=== PATIENT | female | born 1935 | race Caucasian/White ===

== ENCOUNTER 2023-10-21 09:55 | Outpatient (OUT) | payer MEDICARE, SELFPAY ==
--- NOTE | 2023-10-21 11:32 | CA_ITS ---
Patient Name: NAM RUIZ MR#: [id number] : 1935 Exam Date: 10/21/2023 Ordering Doctor: URBANO MILES ECHOCARDIOGRAM REPORT PROCEDURE: CA ECHO LIMITED INDICATIONS: Chronic systolic heart failure COMPARISON: None. DESCRIPTION: Limited ECHOCARDIOGRAM Real-time transthoracic echocardiography with 2D and M-mode performed. QUALITY: Technical quality was good. LEFT VENTRICLE: Normal chamber size. Moderate concentric left ventricular hypertrophy. Global left ventricular systolic function is severely decreased. Abnormal septal motion, likely due to pacing/bundle branch block. LV EF: Visual estimation of left ventricular ejection fraction is 20-25% DIASTOLIC: ATRIAL SEPTUM: LEFT ATRIUM: Severe dilatation. RIGHT ATRIUM: Severe dilatation. RIGHT VENTRICLE: Moderate dilatation. Mildly decreased right ventricular systolic function. Pacer wire present. TRICUSPID VALVE: Normal mobility and thickness. MITRAL VALVE: Normal mobility and thickness. AORTIC VALVE: Normal trileaflet appearance. Mildly calcified aortic valve. Mildly diminished mobility. AORTIC ROOT: Normal diameter and appearance. PULMONIC VALVE: Normal thickness and mobility. PERICARDIUM: Trivial pericardial effusion. IVC: Severe dilatation. No collapse PLEURA: CONCLUSION: 1. The left ventricle exhibits moderate concentric hypertrophy with severely reduced systolic function. LVEF is estimated at 20 to 25%. 2. Moderately dilated right ventricle with mildly reduced systolic function. 3. Severe biatrial dilatation. 4. The aortic valve is calcified and exhibits reduced leaflet excursion. 5. Severely dilated IVC with no inspiratory collapse, consistent with elevated right atrial pressures. 6. Limited study performed with no Doppler interrogation as requested. Adult Echocardiography Procedure Report Left Ventricle LVEDD (3.7 - 5.6 cm): 5.42 cm LVESD (2.2 - 4.0 cm): 5.09 cm LVIVS thickness (0.6 - 1.2 cm): 1.74 cm LVPW thickness (0.5 - 1.0 cm): 1.50 cm LVOT Diameter 1.90 cm Left Ventricular Ejection Fraction: 20-25 % Left Atrium LA Volume Index (2D A2C): 96.19 ml/m2 Left Atrium Systolic Dimension: 5.42 cm Mitral Valve Right Ventricle RV Internal Diastolic Dimension: 4.55 cm Aorta AO Root Diam: 3.07 cm Aortic Valve Tricuspid Valve Pulmonic Valve Right Atrium Right Atrium Systolic Pressure: 139.71 ml, 139.71 ml Dictated by: David Kennedy M.D. on 10/21/2023 at 16:22 Approved by: David Kennedy M.D. on 10/21/2023 at 16:27
== END 2023-10-21 09:56 | disposition home or self-care (01) ==
LOC: CARD 09:56
PROVIDERS: Visit Provider Nurse Practitioner
DX: I50.22 Chronic systolic (congestive) heart failure (principal)
CPT/HCPCS: 93308; 93356

== ENCOUNTER 2023-12-10 12:08 | Outpatient (OUT) | payer MEDICARE, SELFPAY ==
--- NOTE | 2023-12-10 12:35 | XR_ITS ---
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 TECHNIQUE: PA and lateral views of the chest. FINDINGS: The cardiomediastinal silhouette is enlarged. Left-sided cardiac pacemaker with atrial and ventricular leads. Interstitial opacity. There is no pneumothorax. No pleural effusion is noted. The osseous structures are intact. XR/XR chest 2V IMPRESSION: Cardiomegaly with congestion. Electronically authenticated by: SERENE DUNHAM Date: 12/10/2023 13:13
== END 2023-12-10 12:09 | disposition home or self-care (01) ==
LOC: RAD 12:10
PROVIDERS: Visit Provider Internal Medicine Cardiovascular Disease
DX: I42.0 Dilated cardiomyopathy (principal); I51.7 Cardiomegaly
CPT/HCPCS: 71046

== ENCOUNTER 2024-03-10 09:49 | Outpatient (OUT) | payer MEDICARE, SELFPAY ==
--- NOTE | 2024-03-10 09:55 | CA_ITS ---
Patient Name: NAM RUIZ MR#: [id number] : 1935 Exam Date: 03/10/2024 Ordering Doctor: LUCINA AC ECHOCARDIOGRAM REPORT PROCEDURE: CA ECHO DOPPLER COMPLETE INDICATIONS: Heart failure with reduced EF COMPARISON: None. DESCRIPTION: COMPLETE ECHOCARDIOGRAM Real-time transthoracic echocardiography with 2D, M-mode, spectral and color flow Doppler performed. QUALITY: Technical quality was good. LEFT VENTRICLE: Appears mildly dilated. Mild eccentric left ventricular hypertrophy. Global left ventricular systolic function is severely decreased. There is global hypokinesis. LV EF: Estimated left ventricular ejection fraction is 25-30 %. DIASTOLIC: Not adequately assessed due to heart rhythm. ATRIAL SEPTUM: LEFT ATRIUM: Severe dilatation. RIGHT ATRIUM: Severe dilatation. RIGHT VENTRICLE: Mild dilatation. Normal right ventricular systolic function. Pacer wire present. TRICUSPID VALVE: Normal mobility and thickness. No stenosis with mild to moderate regurgitation. Mild pulmonary hypertension. RVSP 42 mmHg MITRAL VALVE: Normal mobility and thickness. No evidence of mitral valve stenosis. Mild mitral annular calcification. Moderate mitral regurgitation. AORTIC VALVE: Normal trileaflet appearance. Moderately calcified aortic valve. Moderately diminished mobility. Doppler velocity suggests moderate aortic valve stenosis. DVI 0.3, AZEEM 0.9 cm2, Vmax 2.6 m/s, Mean gradient 16 mmHg. Moderate aortic regurgitation. AORTIC ROOT: Normal diameter and appearance. PULMONIC VALVE: Normal thickness and mobility. No stenosis. Trivial regurgitation. PERICARDIUM: Trivial pericardial effusion. IVC: Collapses with inspirations. Mild dilatation measuring 2.4 cm. PLEURA: CONCLUSION: 1. Left ventricle exhibits mild eccentric hypertrophy with severely reduced systolic function. There is global hypokinesis. Estimated LVEF is 25 to 30%. 2. The right ventricle exhibits mild dilatation with normal systolic function. 3. Severe biatrial dilatation. 4. Moderate aortic valve stenosis with moderate regurgitation. 5. Moderate mitral and mild to moderate tricuspid regurgitation. 6. Mildly elevated right-sided pressures. RVSP is 42 mmHg. 7. Trivial pericardial effusion. Adult Echocardiography Procedure Report Left Ventricle LVEDD (3.7 - 5.6 cm): 5.47 cm LVESD (2.2 - 4.0 cm): 4.91 cm LVIVS thickness (0.6 - 1.2 cm): 1.47 cm LVPW thickness (0.5 - 1.0 cm): 1.40 cm e': 0.08 m/s E - e': 12.34 LVOT Max Gradient: 2.22 mm[Hg] LVOT Area (cm2): 0.75 m/s Peak Velocity (LVOT): 0.75 m/s Mean Velocity (LVOT): 0.55 m/s LVOT Diameter 1.99 cm Left Ventricular Ejection Fraction: 25-30 % Left Atrium LA Volume Index (2D A2C): 87.90 ml/m2 Left Atrium Systolic Dimension: 5.20 cm Mitral Valve Mitral Valve E-Wave Peak Velocity: 0.99 m/s Right Ventricle RV Internal Diastolic Dimension: 4.37 cm Aorta AO Root Diam: 2.90 cm Ascending Ao Diam: 2.78 cm Aortic Valve AoV Area (Peak Jaquan): 0.99 cm2, 0.90 cm2, 1.34 cm2, 1.34 cm2 AoV Area (VTI): 0.99 cm2, 0.87 cm2 Deceleration [place]: 2.34 m/s2, 1.61 m/s2 Pressure Half-Time: 480.66 ms, 608.04 ms Peak Velocity(Antegrade Flow): 2.58 m/s, 2.53 m/s, 2.18 m/s, 2.18 m/s, 2.28 m/s, 1.74 m/s Peak Gradient(Antegrade Flow): 26.55 mm[Hg], 25.63 mm[Hg], 19.07 mm[Hg], 19.07 mm[Hg], 20.86 mm[Hg], 12.08 mm[Hg] Mean Velocity(Antegrade Flow): 1.93 m/s, 1.92 m/s, 1.69 m/s, 1.75 m/s, 1.86 m/s Mean Gradient(Antegrade Flow): 16.44 mm[Hg], 16.29 mm[Hg], 12.35 mm[Hg], 13.09 mm[Hg], 14.44 mm[Hg] Velocity Time Integral: 55.76 cm, 54.30 cm, 42.04 cm, 43.01 cm, 51.43 cm Tricuspid Valve Peak Velocity (Regurgitant Flow): 2.65 m/s, 2.83 m/s, 2.91 m/s Pulmonic Valve Mean Gradient: 2.03 mm[Hg], 1.87 mm[Hg] Mean Velocity: 0.67 m/s, 0.63 m/s Peak Velocity: 0.95 m/s, 0.82 m/s Peak Gradient: 3.75 mm[Hg], 3.48 mm[Hg], 2.67 mm[Hg] Right Atrium Right Atrium Systolic Pressure: 129.76 ml, 129.76 ml Dictated by: David Kennedy M.D. on 03/10/2024 at 19:44 Approved by: David Kennedy M.D. on 03/10/2024 at 19:52
== END 2024-03-10 09:50 | disposition home or self-care (01) ==
LOC: CARD 09:50
PROVIDERS: Visit Provider Internal Medicine Cardiovascular Disease
DX: I42.0 Dilated cardiomyopathy (principal)
CPT/HCPCS: 93306; 93356